=== PATIENT | female | born 1995 | race Caucasian/White ===

== ENCOUNTER 2016-11-26 15:04 | Emergency (ER) | payer SELFPAY ==
[2016-11-26] MEDS ORDERED: EPINEPHRine HCL 1 mg/mL 1mL Amp SUBQ STA (15:31)
[2016-11-26] MEDS ORDERED: EPINEPHRine HCL 1 mg/mL 1mL Amp ONE ×2 (15:34→15:38)
--- NOTE | 2016-11-26 15:44 | ED Physician Chart ---
Chief Complaint/HPI - Patient Information Date Seen:: 11/26/16 Time Seen:: 15:25 Chief Complaint:: rash History of Present Illness:: about 5 minutes after using clay stain mixer on her pants developed widespread pruritic rash which is now improving. No throat swelling or difficulty breathing. Has had a URI for a few days. Allergies:: Allergies Allergy/AdvReac Type Severity Reaction Status Date / Time No Known Allergies Allergy Verified 11/26/16 15:27 Vitals:: Vital Signs - 8 hr 11/26/16 15:28 Temp 98.6 F HR 105 RR 20 BP 129/85 Historian:: Patient Review:: Nurse's Note Reviewed Review of Systems - Review of Systems General/Constitutional: No fever, No chills Skin: Skin lesions, Rash Head: No headache, No light-headedness Eyes: No loss of vision, No diplopia ENT: Nasal drainage Neck: No neck pain, No swelling Cardio Vascular: No chest pain Pulmonary: No SOB GI: No nausea, No vomiting G/U: No dysuria Musculoskeletal: No bone or joint pain, No muscle pain Psychiatric: No prior psych history, No depression, No anxiety Hematopoietic: No bruising Allergic/Immuno: Urticaria Neurological: No syncope, No vertigo Past Medical History - Past Medical History Past Medical History: Other (two prior episodes of urticarea) Family History: Diabetes Melitus, Other (diabetes II) Social History: Non Smoker, No Alcohol Surgical History: None Psychiatricy History: None Medication: Reviewed Physical Exam - Physical Examination General/Constitutional: Well-developed, well-nourished, Alert, No distress Head: Atraumatic Eyes: Lids, conjuctiva normal, PERRL Other Skin comments:: few urticarea upper extremities ENMT: External ears, nose nl, TM canals nl, Nasal exam nl, Lips, teeth, gums nl , Oropharynx nl, Tonsils nl Neck: No nuchal rigidity Respiratory: Nl effort/Exclusion, Clear to Auscultation, No Wheeze/Rhonchi/Rales Cardio Vascular: RRR, No murmur, gallop, rubs GI: No tenderness/rebounding/guarding, No organomegaly, No hernia, Normal BS's, Nondistended, No mass/bruits, No McBurney tenderness : No CVA tenderness Extremities: Normal digits & nails Neuro/Psych: Alert/oriented, No focal deficits Misc: Normal back Assessment - Assessment General Assessment: at 1558 rash is improved ED Septic Shock - . Is Septic Shock (SBP<90, OR Lactate>4 mmol\L) present?: No - <6hrs of presentation: Vital Signs: Vital Signs - 8 hr 11/26/16 15:28 Temp 98.6 F HR 105 RR 20 BP 129/85 Reassessment (Disposition) - Reassessment Reassessment Condition:: Improved - Diagnosis Diagnosis:: urticarea - Aftercare/Follow up Instructions Aftercare/Follow-Up Instructions:: Refer to Discharge Instructions Medication Prescribed:: atarax 25 mg #20 Sig 1 QID - Patient Disposition Discharge/Transfer:: Home Condition at Disposition:: Critical, Improved
== END 2016-11-26 16:15 | disposition home or self-care (01) ==
LOC: ER 15:04
DX: L50.9 Urticaria, unspecified (principal)
CPT/HCPCS: 99283; 96372; J0171 ×2; Z7502